=== PATIENT | female | born 1995 | race Caucasian/White ===

== ENCOUNTER 2016-08-27 16:00 | Inpatient (IN) | payer OTHER ==
[~2016-08-27] VITALS: Ht 165.1 cm; Wt 113.4 kg
[~2016-08-27 16:00] MED LIST: IBUP-974 PO; IRON65TA3 PO; PRETAB GT
[2016-08-27 16:03] VITALS: BP 124/71
--- NOTE | 2016-08-27 16:03 | NUR ---
Olga alfaro in [facility] - 08/27/16 at 1616 by MURTAZA Patient ambulated to bed 05.
--- NOTE | 2016-08-27 16:03 | NUR ---
Patient ambulated to bed 06.
--- NOTE | 2016-08-27 16:05 | NUR ---
21/F C/O FEVER X2 DAYS. PT ALSO REPORTS ABDOMINAL PAIN, BODY ACHES AND DIARRHEA. PT REPORTS HAVING 1 EPISODE AN HOUR OF DIARRHEA. PT DESCRIBES IT LOOSE, WATERY. PT DESCRIBES PAIN DULL, NON RADIATING, 6/10. PT SKIN FLUSHED, HOT TO TOUCH, SWEATING NOTED. AOX4, CLEAR SPEECH NOTED. PT PLACED INTO A GOWN, PLACED ON SURGERY TEACHER, SHOWS SINUS TACHYCARDIA 130, PULSE OX 99% ON RA, AND BLOOD PRESSURE MONITORING. NO SOB, CHEST PAIN NOTED. ABDOMEN SOFT, NON TENDER, HYPOACTIVE BOWEL SOUNDS X4 QUADRANTS. MOTHER AT BEDSIDE.
--- NOTE | 2016-08-27 16:14 | NUR ---
Dr. Llamas evaluating patient at bedside.
[2016-08-27] MEDS ORDERED: IBUPROFEN 800 MG TAB ONE (16:17)
[2016-08-27] MEDS ORDERED: NACL 0.9% 1,000 ML IV SCH (16:19)
[2016-08-27] MEDS ORDERED: ONDANSETRON 4 MG/2 ML VIAL IVP ONE (16:20)
[2016-08-27 16:50] LABS: HEMATOCRIT 33.8 % (36-48); HEMOGLOBIN 11.2 g/dL (12.0-16.0); MEAN CORPUSCULAR HEMOGLOBIN 28 pg (27-31); MEAN CORPUSCULAR HGB CONC 33 g/dL (33-37); MEAN CORPUSCULAR VOLUME 85 fL (80-94); PLATELET COUNT (AUTO) 228 K/uL (140-450); RED BLOOD CELL COUNT(AUTO) 3.98 MIL/uL (4.20-5.40); RED CELL DISTRIBUTION WIDTH 12.8 % (11.6-13.7); WHITE BLOOD COUNT (AUTO) 17.5 K/uL (4.8-10.8)
--- NOTE | 2016-08-27 16:50 | NUR ---
XRAY at bedside.
[2016-08-27 17:05] LABS: ANION GAP 13.5 (8-16); CALCIUM 8.2 mg/dL (8.5-10.1); CARBON DIOXIDE 23.5 mmol/L (21-32); CREATININE 0.9 mg/dL (0.6-1.3)
--- NOTE | 2016-08-27 17:07 | NUR ---
ICE PACKS APPLIED TO BILATERAL AXILLA. COOL DAMP WASH CLOTH APPLIED TO HEAD.
[2016-08-27 17:09] LABS: INR 1.3 (0.8-1.2); PARTIAL THROMBOPLASTIN TIME 28.5 secs (22-35.6); PROTHROMBIN TIME 12.2 secs (10.8-13.4)
[2016-08-27 17:11] LABS: ALBUMIN 3.2 g/dL (3.4-5.0); TOTAL BILIRUBIN 0.5 mg/dL (0.0-1.0); TOTAL PROTEIN, SERUM 7.4 g/dL (6.4-8.2)
[2016-08-27 17:14] LABS: BAND % (MANUAL) 30 % (0-8); LYMPHOCYTES % (MANUAL) 16 % (20-46); MONOCYTES % (MANUAL) 3 % (5-12); NEUTROPHILS % (MANUAL) 51 (43-65); PLATELET ESTIMATE ADEQUATE
--- NOTE | 2016-08-27 17:29 | NUR ---
PAIN MEDICATION OFFERED TO PATIENT. PT REFUSED AT THIS TIME. PT STATES "I'M OKAY RIGHT NOW." PT IN POSITION OF COMFORT. IV FLUIDS RUNNING. OFFERED TO TAKE PATIENT TO RESTROOM. PT STATES "I'M OKAY RIGHT NOW." TEMP 100.7 ORALLY. PT APPEARS TO BE RESTING AT THIS TIME.
[2016-08-27 17:43] LABS: APPEARANCE,URINE CLOUDY (CLEAR); BILIRUBIN,URINE NEGATIVE (NEGATIVE); BLOOD, URINE 2+ (NEGATIVE); COLOR,URINE YELLOW (YELLOW); LEUKOCYTE ESTERASE ,URINE 2+ (NEGATIVE); NITRITE, URINE NEGATIVE (NEGATIVE); UGLUCOSE NEGATIVE (NEGATIVE); UROBILINOGEN,URINE 0.2 EU/dL (0.2 - 1)
[2016-08-27 17:45] LABS: PROTEIN,URINE 1+ (NEGATIVE)
[2016-08-27 17:48] LABS: BACTERIA,URINE 2+ /HPF (None Seen); MUCUS,URINE 2+ /LPF (None Seen); SQUAMOUS EPITHELIAL CELL,UR 20-40 /LPF (0-3 (FEW))
[2016-08-27] MEDS ORDERED: POTASSIUM CHLORIDE 10 MEQ TABER PO ONE (18:00)
--- NOTE | 2016-08-27 18:00 | NUR ---
ICE PACKS REMOVED. NEW COOL DAMP WASH CLOTH PLACED TO HEAD. PT DENIES PAIN AT THIS TIME. VSS. PT IS CALM AND RELAXED.
[2016-08-27] MEDS ORDERED: ACETAMINOPHEN 325 MG TAB PO PRN (18:05)
[2016-08-27] MEDS ORDERED: ONDANSETRON 4 MG/2 ML VIAL IVP PRN (18:05)
[2016-08-27] MEDS ORDERED: ALBUTEROL 0.083% 2.5 MG/3 ML NEBU IH PRN (18:05)
[2016-08-27] MEDS ORDERED: LORazepam 2 MG/ML VIAL IVP PRN (18:05)
[2016-08-27] MEDS ORDERED: POTASSIUM CHL 40 MEQ/ D5-1/2NS 1,000 ML IV ONE (18:10)
[2016-08-27] MEDS ORDERED: NACL 0.9% 1,000 ML IV ONE (18:10)
--- NOTE | 2016-08-27 18:32 | NUR ---
Patient will be admitted to care of Dr. Mondragon. Admited to Med/Surg. Will go to room 118. Belongings list completed. Report to Allie BRUCE.
--- NOTE | 2016-08-27 18:46 | NUR ---
Pt ambulated to restroom. New gown provided.
--- NOTE | 2016-08-27 18:54 | NUR ---
Patient will be admitted to care of DR. HOLGUIN. Admited to [facility] 118. Will go to room. Belongings list completed. Report to .
[2016-08-27 19:00] VITALS: BP 114/58
--- NOTE | 2016-08-27 19:00 | NUR ---
PT ARRIVED FROM ER IN WHEEL CHAIR, REPORT RECEIVED FROM LEATHA BRUCE PRIOR TO PT ARRIVAL, PT AAOX4, RESP EVEN UNLABORED ON ROOM AIR IN NAD, SPEAKS CLEARLY, WALKS FROM WHEELCHAIR TO BED WITHOUT PROBLEM, 20G PIV TO RIGHT HAND S/L'D, SITE CLEAR, PT DENIES PAIN OR DISCOMFORT AT THIS TIME, PT ORIENTED TO ROOM AND FLOOR, CALL RIVERS AT BEDSIDE, SIDE RAILS UP X2, BED LOCKED IN LOW POSITION, WILL REPORT OFF TO FUR FINISHER NURSE. CURRENT VITALS: HR 93, BP 114/58, RR 19, T 97.1 TA, SAT 98% RA, PAIN 0.
--- NOTE | 2016-08-27 19:25 | NUR ---
REPORT GIVEN TO COFFEE GROWER NURSE MADDY BROWN IN STABLE CONDITION.
--- NOTE | 2016-08-27 19:30 | NUR ---
RECEIVED REPORT FROM AM NURSE. PT'S AT BEDSIDE. PT RESTING IN BED, AOX4, ABLE TO VERBALIZE NEEDS. PT DENIES CHEST PAIN, SOB OR S/S OF ACUTE DISTRESS. PT REPORTS STILL HAVING DIARRHEA. PT DENIES CHILLS, BODYACHES OR PAIN AT THIS TIME. BOWEL SOUNDS ACTIVE, ABD SOFT AND NONTENDER. PT INSTRUCTED TO COLLECT STOOL SAMPLE TO TEST FOR C.DIFF, SPECIMEN COLLECTION SET UP AT TOILET. PT VERBALIZED UNDERSTANDING. IV ACCESS ASYMPTOMATIC, PATENT AND INTACT. SALINE LOCKED AT THIS TIME. DISCUSSED AND REVIEWED PLAN OF CARE WITH PT. PT VERBALIZED UNDERSTANDING. SAFETY MEASURES ENSURED. CALL LIGHT WITHIN REACH. WILL CONTINUE TO MONITOR.
[2016-08-27 20:00] VITALS: BP 110/52
[2016-08-27] MEDS ORDERED: cefTRIAXone 1,000 MG VIAL ONE (21:14)
--- NOTE | 2016-08-27 21:34 | NUR ---
IVF AND ROCEPHIN IV ADMINISTERED WITH EDUCATION. PT VERBALIZED UNDERSTANDING. IV INFUSING WELL. ONLY ONE IV ACCESS AT THIS TIME. WILL ADMINISTER 40MEQ POTASSIUM/D5W/0.45NS BAG AFTER COMPLETION OF ROCEPHIN. CONDITION STABLE. SAFETY MEASURES ENSURED. CALL LIGHT WITHIN REACH. WILL CONTINUE TO MONITOR.
--- NOTE | 2016-08-27 22:34 | NUR ---
PT C/O PAIN AT IV SITE. ASYMPTOMATIC, PATENT AND INTACT, BUT WITH PAIN. PT STATED "IT HURTS TOO MUCH." IV SALINE LOCKED. ATTEMPTED TO INSERT NEW IV, UNSUCCESSFUL. WILL TRY AGAIN LATER. CONDITION STABLE. ALL NEEDS MET. SAFETY MEASURES ENSURED.
--- NOTE | 2016-08-27 23:25 | NUR ---
NEW IV ACCESS 22G RIGHT FOREARM, ASYMPTOMATIC, PATENT AND INTACT. 40MEQ KCL-D5-0.45NS BAG STARTED WITH EDUCATION, PT VERBALIZED UNDERSTANDING. DENIES PAIN/DISCOMFORT AT SITE, TOLERATING MED WELL. PT C/O OF HEADACHE AND BODY ACHES. SEE PAIN ASSESSMENT. TEMP 103.1; WILL ADMINISTER TYLENOL ORDERED. ICE PACKS AND COOLING MEASURES ENSURED. WILL RECHECK TEMP AND CONTINUE TO MONITOR.
--- NOTE | 2016-08-27 23:30 | NUR ---
CONTINUED MAINTENANCE IVF NS ON RIGHT HAND IV ACCESS, ASYMPTOMATIC, PATENT AND INTACT. BUT PT REFUSED TO CONTINUE STATING THAT "IT HURTS TOO MUCH." IV ON RIGHT HAND SALINE LOCKED. WILL TRY AGAIN LATER.
[2016-08-28] VITALS: BP 114/63
--- NOTE | 2016-08-28 | NUR ---
ADMINISTERED TYLENOL WITH EDUCATION. ICE PACKS AND COOLING MEASURES ENSURED. CONDITION STABLE. SAFETY MEASURES ENSURED. CALL LIGHT WITHIN REACH.
--- NOTE | 2016-08-28 00:45 | NUR ---
TEMP 101.3, TRENDING DOWN. WILL CONTINUE TO RECHECK AND MONITOR. ICE PACKS AND COOLING MEASURES ENSURED. CONDITION STABLE.
--- NOTE | 2016-08-28 01:30 | NUR ---
TEMP 100.1, TRENDING DOWN. PT STATED RELIEF OF BODY ACHES, STATED "I'M FEELING BETTER, I'M STARTING TO SWEAT." CONDITION STABLE. WILL CONTINUE TO MONITOR.
--- NOTE | 2016-08-28 04:00 | NUR ---
PT REPORTS STILL HAVING DIARRHEA. PT DENIES PAIN, BODY ACHES OR SOB. TEMP 98.6; CONDITION STABLE. SAFETY MEASURES ENSURED. CALL LIGHT WITHIN REACH. WILL CONTINUE TO MONITOR.
[2016-08-28 06:09] LABS: BASOPHILS # (AUTO) 0.1 K/uL (0.00-0.22); BASOPHILS % (AUTO) 0.6 % (0.0-2.0); EOSINOPHILS # (AUTO) 0.2 K/uL (0-0.4); EOSINOPHILS % (AUTO) 1.6 % (0.0-4.0); HEMATOCRIT 33.3 % (36-48); HEMOGLOBIN 11.2 g/dL (12.0-16.0); LYMPHOCYTES # (AUTO) 2.1 K/uL (2.5-16.5); LYMPHOCYTES % (AUTO) 16.1 % (20.5-51.1); MEAN CORPUSCULAR HEMOGLOBIN 29 pg (27-31); MEAN CORPUSCULAR HGB CONC 34 g/dL (33-37); MEAN CORPUSCULAR VOLUME 85 fL (80-94); MONOCYTES # (AUTO) 0.9 K/uL (0.8-1.0); MONOCYTES % (AUTO) 6.8 % (1.7-9.3); NEUTROPHILS # (AUTO) 9.5 K/uL (1.8-7.7); NEUTROPHILS % (AUTO) 74.9 % (42.2-75.2); PLATELET COUNT (AUTO) 202 K/uL (140-450); RED BLOOD CELL COUNT(AUTO) 3.92 MIL/uL (4.20-5.40); RED CELL DISTRIBUTION WIDTH 12.9 % (11.6-13.7); WHITE BLOOD COUNT (AUTO) 12.8 K/uL (4.8-10.8)
[2016-08-28 07:02] LABS: ALBUMIN 2.8 g/dL (3.4-5.0); ANION GAP 13.7 (8-16); CALCIUM 8.2 mg/dL (8.5-10.1); CARBON DIOXIDE 22.9 mmol/L (21-32); CREATININE 0.8 mg/dL (0.6-1.3); MAGNESIUM 1.8 mg/dL (1.8-2.4); POTASSIUM 3.6 mmol/L (3.5-5.1); TOTAL BILIRUBIN 0.3 mg/dL (0.0-1.0)
--- NOTE | 2016-08-28 07:22 | NUR ---
CONDITION STABLE. ENDORSED PLAN OF CARE TO AM NURSE.
--- NOTE | 2016-08-28 07:23 | NUR ---
PT AWAKE AND ALERT, NO SIGNS OF ACUTE DISTRESS. BREATHING EVEN AND UNLABORED BILATERALLY. SKIN INTACT. BOWEL SOUNDS ACTIVE IN ALL 4 QUADRANTS WITH C/O NAUSEA, WILL MEDICATE. CONTINENT TO BOWEL AND BLADDER WITH C/O DIARRHEA. IV PATENT AND INFUSING WITH NO REDNESS AROUND INSERTION SITE. PT AMBULATORY WITH BRP, BED IN LOW POSITION WITH BILATERAL HALF SIDE RAILS UP, CALL LIGHT WITHIN REACH. RE-ORIENTED PATIENT TO UNIT AND HOSPITAL.
[2016-08-28 08:00] VITALS: BP 109/58
--- NOTE | 2016-08-28 08:00 | NUR ---
PT HAS TEMPERATURE OF 100. PUT ICE PACKS ON GROIN, WILL CONTINUE TO MONITOR.
--- NOTE | 2016-08-28 08:52 | NUR ---
PATIENT HAS BEEN SCREENED AND CATEGORIZED HIGH NUTRITION RISK. PATIENT WILL BE SEEN WITHIN 1-2 DAYS OF ADMISSION. 08/28/16-08/29/[address]
--- NOTE | 2016-08-28 09:00 | NUR ---
PT TEMPERATURE AT 99.2. WILL CONTINUE TO MONITOR.
--- NOTE | 2016-08-28 09:00 | NUR ---
PT C/O NAUSEA, WILL MEDICATE WITH PRN ZOFRAN.
[2016-08-28] MEDS: ENOXAPARIN 40 MG/0.4 ML SYR SUBQ SCH (09:18)
--- NOTE | 2016-08-28 10:00 | NUR ---
PT TEMPERATURE AT 98.4, WILL CONTINUE TO MONITOR ORDERED.
[2016-08-28] MEDS: HYDROcodone/APAP 5/325 MG 1 TAB TAB PO PRN ×2 (13:20→23:05)
--- NOTE | 2016-08-28 13:52 | NUR ---
08/28/16 RD INITIAL ASSESSMENT COMPLETED PLEASE REFER TO NUTRITION ASSESSMENT UNDER CARE ACTIVITY FOR ESTIMATED NUTRITIONAL NEEDS. 1. CONTINUE REGULAR DIET 2. ADD HEALTH SHAKE TID 3. RD TO FOLLOW-UP 2-3 DAYS; HIGH RISK DOUG CASTILLO RD
--- NOTE | 2016-08-28 14:38 | NUR ---
CM NOTE INITIAL REVIEW SENT TO [facility] [phone] PH AIDAN [phone]
[2016-08-28] MEDS: LOPERAMIDE 2 MG CAP PO PRN ×2 (15:03→21:30)
[2016-08-28 16:00] VITALS: BP 100/54
--- NOTE | 2016-08-28 19:32 | NUR ---
PT AWAKE AND ALERT, NO SIGNS OF ACUTE DISTRESS. BED IN LOW POSITION WITH BILATERAL HALF SIDE RAILS UP, CALL LIGHT WITHIN REACH. ENDORSED TO GOLD LETTERER NURSE FOR CONTINUITY OF CARE.
--- NOTE | 2016-08-28 20:00 | NUR ---
PT TOOK SHOWER ACCOMPANIED BY HIMS MANAGER, ALL NEEDS ATTENDED.
--- NOTE | 2016-08-28 21:34 | NUR ---
PT HAD THREE WATERY BM SMALL AMOUNT SO FAR, NO BLOOD IN STOOL NOTED, MEDICATED PRN WITH LOPERAMIDE PO, DENIES ANY PAIN AT THIS TIME, ALL NEEDS ATTENDED.
[2016-08-29] VITALS: BP 105/67
--- NOTE | 2016-08-29 | NUR ---
AFEBRILE, DENIES ANY PAIN, NO N/V NOTED, CONTINUE TO MONITOR CLOSELY.
[2016-08-29] MEDS: LOPERAMIDE 2 MG CAP PO PRN (03:47)
[2016-08-29 04:00] VITALS: BP 114/56
--- NOTE | 2016-08-29 04:00 | NUR ---
STILL WITH EPISODE OF DIARRHEA, MEDICATED PRN WITH IMODIUM PO, DENIES ANY PAIN, MONITORED CLOSELY.
[2016-08-29 05:37] LABS: BASOPHILS # (AUTO) 0.1 K/uL (0.00-0.22); BASOPHILS % (AUTO) 0.9 % (0.0-2.0); EOSINOPHILS # (AUTO) 0.2 K/uL (0-0.4); EOSINOPHILS % (AUTO) 1.8 % (0.0-4.0); HEMATOCRIT 31.2 % (36-48); HEMOGLOBIN 10.4 g/dL (12.0-16.0); LYMPHOCYTES # (AUTO) 2.6 K/uL (2.5-16.5); LYMPHOCYTES % (AUTO) 26.1 % (20.5-51.1); MEAN CORPUSCULAR HEMOGLOBIN 29 pg (27-31); MEAN CORPUSCULAR HGB CONC 34 g/dL (33-37); MEAN CORPUSCULAR VOLUME 85 fL (80-94); MONOCYTES # (AUTO) 0.9 K/uL (0.8-1.0); MONOCYTES % (AUTO) 9.3 % (1.7-9.3); NEUTROPHILS # (AUTO) 6.3 K/uL (1.8-7.7); NEUTROPHILS % (AUTO) 61.9 % (42.2-75.2); PLATELET COUNT (AUTO) 211 K/uL (140-450); RED BLOOD CELL COUNT(AUTO) 3.67 MIL/uL (4.20-5.40); RED CELL DISTRIBUTION WIDTH 12.7 % (11.6-13.7); WHITE BLOOD COUNT (AUTO) 10.1 K/uL (4.8-10.8)
[2016-08-29 06:15] LABS: ANION GAP 12.7 (8-16); CALCIUM 8.3 mg/dL (8.5-10.1); CARBON DIOXIDE 24.9 mmol/L (21-32); CREATININE 0.7 mg/dL (0.6-1.3); POTASSIUM 3.6 mmol/L (3.5-5.1)
[2016-08-29 06:23] LABS: PHOSPHORUS 3.5 mg/dL (2.5-4.9)
--- NOTE | 2016-08-29 07:15 | NUR ---
PT CURRENTLY IN THE BR, REPORT GIVEN TO TEO RAMIREZ FOR CONTINUITY OF CARE.
--- NOTE | 2016-08-29 07:16 | NUR ---
PT ALERT AND ORIENTED X4, BREATHING EVENLY AND UNLABORED, NO SIGNS OF ACUTE DISTRESS. SKIN IS WARM AND DRY. NO SIGNS OF ANY BOWEL/BLADDER DISCOMFORT. DENIES OF ANY PAIN OR DISCOMFORT. ALL NEEDS ATTENDED, SAFETY PRECAUTIONS MAINTAINED. CALL LIGHT WITHIN REACH.
--- NOTE | 2016-08-29 07:30 | NUR ---
PT WITH EPISODE OF LOOSE STOOL X1. CONTINUE TO MONITOR.
[2016-08-29 07:57] VITALS: BP 118/67
[2016-08-29] MEDS: ENOXAPARIN 40 MG/0.4 ML SYR SUBQ SCH (08:37)
[2016-08-29 12:00] VITALS: BP 105/67
[2016-08-29] MEDS ORDERED: traMADol 50 MG TAB PO PRN (14:10)
--- NOTE | 2016-08-29 14:16 | NUR ---
WAS SEEN BY DR. GAN, NEW MED ORDERS RECEIVED. NOTED AND CARRIED OUT.
[2016-08-29] MEDS ORDERED: PANTOPRAZOLE 40 MG TABEC PO SCH (14:30)
[2016-08-29] MEDS ORDERED: TRAM50TA3 PO (15:08)
[2016-08-29] MEDS ORDERED: CEFD300C3 PO (15:08)
--- NOTE | 2016-08-29 15:15 | NUR ---
RECEIVED ORDER, PT MAY D/C HOME TODAY. NOTED AND CARRIED OUT.
[2016-08-29] MEDS ORDERED: PANT40EC PO (15:19)
[2016-08-29] MEDS ORDERED: IMO2 PO (15:19)
--- NOTE | 2016-08-29 15:26 | NUR ---
FAXED CONCURRENT REVIEW TO [facility] [phone] PHONE AIDAN [phone]
[2016-08-29 16:00] VITALS: BP 108/50
--- NOTE | 2016-08-29 16:00 | NUR ---
PT ALERT AND RESPONSIVE, NO SIGNS OF ACUTE DISTRESS, MAY D/C HOME ORDERED. EDUCATED TO FOLLOW UP WITH PCP IN 1 WEEK, REVIEWED DISCHARGE MEDICATION, INDICATIONS AND SIDE EFFECTS. PT VERBALIZED UNDERSTANDING. IV LINE AND TELE LEADS REMOVED. WRIST BANDS REMOVED. PERSONAL BELONGINGS WITH PT UPON DISCHARGE. PICKED UP BY FAMILY, ESCORTED TO FRONT LOBBY. TO GO HOME WITH PRIVATE AUTO.
[2016-08-30] MEDS ORDERED: PANTOPRAZOLE 40 MG TABEC PO SCH (06:30)
== END 2016-08-29 16:00 | disposition home or self-care (01) | DRG 720 ==
LOC: MED 16:00 → MTU 18:07
PROVIDERS: ADMIT Internal Medicine Pulmonary Disease; ATTEND Internal Medicine Pulmonary Disease
DX: A41.9 Sepsis, unspecified organism (principal); E83.51 Hypocalcemia; N12 Tubulo-interstitial nephritis, not specified as acute or chronic; E87.6 Hypokalemia; R19.7 Diarrhea, unspecified; D64.9 Anemia, unspecified
CPT/HCPCS: 36415; 71010; 80048; 80053; 81001; 81025; 83605; 83735; 84100; 85025; 85610; 85730; 87040; 87070; 87081; 87086; 93005; 94761; 96361; 96374; 99285; J0696; J1650; J2405; J7030; J7060; Q0092

== ENCOUNTER 2019-12-19 22:45 | Observation (INO) | payer MEDICAID ==
[~2019-12-19] VITALS: Ht 170.2 cm; Wt 120.2 kg
[~2019-12-19 22:45] MED LIST changes: +CEFD300C3 PO; +IMO2 PO; -IRON65TA3 PO; +PANT40EC PO; -PRETAB GT; +TRAM50TA3 PO
[2019-12-19 23:15] VITALS: BP 125/75
== END 2019-12-20 02:03 | disposition home or self-care (01) ==
LOC: MLD 22:45
PROVIDERS: ADMIT Obstetrics & Gynecology; ATTEND Obstetrics & Gynecology
DX: O36.8130 Decreased fetal movements, third trimester, not applicable or unspecified (principal); Z3A.29 29 weeks gestation of pregnancy
CPT/HCPCS: 59025; 76819; 81000; G0378; Q0092

== ENCOUNTER 2020-01-31 15:32 | Inpatient (IN) | payer MEDICAID, SELFPAY ==
[~2020-01-31] VITALS: Ht 170.2 cm; Wt 124.3 kg
[~2020-01-31 15:32] MED LIST changes: -CEFD300C3 PO
[2020-01-31] MEDS ORDERED: BETAMETH ACET/BETAMETH NA PH 30 MG/5 ML VIAL IM SCH (16:08)
[2020-01-31 16:31] LABS: BASOPHILS # (AUTO) 0.1 K/uL (0.00-0.22); BASOPHILS % (AUTO) 0.7 % (0.0-2.0); EOSINOPHILS # (AUTO) 0.1 K/uL (0-0.4); EOSINOPHILS % (AUTO) 0.9 % (0.0-4.0); HEMATOCRIT 37.4 % (36-48); HEMOGLOBIN 12.4 g/dL (12.0-16.0); LYMPHOCYTES % (AUTO) 20.5 % (20.5-51.1); MEAN CORPUSCULAR HEMOGLOBIN 29 pg (27-31); MEAN CORPUSCULAR HGB CONC 33 g/dL (33-37); MEAN CORPUSCULAR VOLUME 87.9 fL (80-94); MONOCYTES # (AUTO) 0.7 K/uL (0.8-1.0); MONOCYTES % (AUTO) 7.2 % (1.7-9.3); NEUTROPHILS # (AUTO) 6.8 K/uL (1.8-7.7); NEUTROPHILS % (AUTO) 70.7 % (42.2-75.2); PLATELET COUNT (AUTO) 269 K/uL (140-450); RED BLOOD CELL COUNT(AUTO) 4.25 MIL/uL (4.20-5.40); RED CELL DISTRIBUTION WIDTH 14.2 % (11.6-13.7); WHITE BLOOD COUNT (AUTO) 9.6 K/uL (4.8-10.8)
[2020-01-31 16:45] LABS: ALBUMIN 2.9 g/dL (3.4-5.0); ANION GAP 17.6 (8-16); CARBON DIOXIDE 23.4 mmol/L (21-32); CREATININE 0.5 mg/dL (0.6-1.3); TOTAL BILIRUBIN 0.2 mg/dL (0.0-1.0)
[2020-01-31 17:38] LABS: APPEARANCE,URINE CLEAR (CLEAR); BILIRUBIN,URINE NEGATIVE (NEGATIVE); BLOOD, URINE TRACE-L (NEGATIVE); COLOR,URINE YELLOW (YELLOW); LEUKOCYTE ESTERASE ,URINE TRACE (NEGATIVE); NITRITE, URINE NEGATIVE (NEGATIVE); UGLUCOSE NEGATIVE (NEGATIVE)
[2020-01-31 18:21] LABS: RBC,URINE 0-5 /HPF (0-5)
[2020-01-31 19:13] VITALS: BP 140/78
[2020-01-31] MEDS: LACTATED RINGERS 1,000 ML IV SCH (20:07)
[2020-02-01] MEDS: LACTATED RINGERS 1,000 ML IV SCH ×3 (04:00→18:19)
--- NOTE | 2020-02-01 08:36 | NUR ---
PATIENT HAS BEEN SCREENED AND CATEGORIZED MODERATE NUTRITION RISK. PATIENT WILL BE SEEN WITHIN 3-5 DAYS OF ADMISSION. 02/03/20 02/05/[address]
[2020-02-01] MEDS: INSULIN LISPRO SLIDING SCALE 100 UNITS/ML VIAL SUBQ PRN ×2 (09:57→14:00)
[2020-02-01] MEDS ORDERED: METR500T1 PO (17:12)
[2020-02-01] MEDS ORDERED: PNV1TABL5 PO (17:12)
[2020-02-01] MEDS ORDERED: BETAMETH ACET/BETAMETH NA PH 30 MG/5 ML VIAL IM ONE (18:18)
[2020-02-01] MEDS ORDERED: NOVN SUBQ (22:24)
[2020-02-02] MEDS ORDERED: fentaNYL citrate 0.05 MG/ML VIAL ONE (12:13)
[2020-02-02] MEDS ORDERED: ONDANSETRON 4 MG/2 ML VIAL ONE (12:13)
[2020-02-02] MEDS ORDERED: DEXAMETHASONE 4 MG/ML VIAL ONE (12:13)
[2020-02-02] MEDS ORDERED: MIDAZOLAM 2 MG/2 ML VIAL ONE (12:13)
[2020-02-02] MEDS ORDERED: LIDOCAINE 2% 100 MG/5 ML SYR IVP ONE (12:13)
[2020-02-02] MEDS ORDERED: OXYTOCIN 10 UNITS/ML VIAL ONE (12:13)
[2020-02-02] MEDS ORDERED: METOCLOPRAMIDE 10 MG/2 ML INJ VIAL ONE (12:13)
[2020-02-02] MEDS ORDERED: MORPHINE PRES FREE 10 MG/10 ML AMP IV ONE (12:13)
== END 2020-02-01 18:25 | disposition home or self-care (01) | DRG 566 ==
LOC: MLD 15:32 → OBSVTOIN 15:32
PROVIDERS: ADMIT Obstetrics & Gynecology; ATTEND Obstetrics & Gynecology
DX: O24.419 Gestational diabetes mellitus in pregnancy, unspecified control (principal); Z3A.28 28 weeks gestation of pregnancy; Z83.3 Family history of diabetes mellitus; Z82.49 Family history of ischemic heart disease and other diseases of the circulatory system; Z20.828 Contact with and (suspected) exposure to other viral communicable diseases
CPT/HCPCS: 36415; 76819; 80053; 81001; 82948; 85025; 86886; 86900; 86901; 87086; J0702; J1100; J2001; J2250; J2270; J2405; J2590; J2765; J3010; J7120

== ENCOUNTER 2020-02-13 11:58 | Outpatient (CLI) | payer MEDICAID ==
[~2020-02-13 11:58] MED LIST changes: -IBUP-974 PO; -IMO2 PO; +METR500T1 PO; +NOVN SUBQ; -PANT40EC PO; +PNV1TABL5 PO; -TRAM50TA3 PO
== END 2020-02-13 20:10 | disposition home or self-care (01) ==
LOC: MLB 11:58
PROVIDERS: ATTEND Obstetrics & Gynecology
DX: Z01.812 Encounter for preprocedural laboratory examination (principal); Z20.828 Contact with and (suspected) exposure to other viral communicable diseases
CPT/HCPCS: U0003